=== PATIENT | female | born 1990 | race Caucasian/White ===

== ENCOUNTER 2021-12-04 21:08 | Outpatient (CLI) | payer OTHER ==
[~2021-12-04] VITALS: Ht 157.5 cm; Wt 70.5 kg
[2021-12-04 21:30] VITALS: BP 113/70; PULSE 75
--- NOTE | 2021-12-04 21:30 | NUR ---
2130 [id number] 24 WEEK GEST TO LR3 WITH C/O VAG BLEEDING AFTER INTERCOURSE. VAG PAD ON WITH SM AMOUNT OF PINKISH AND BRIGHT RED BLOOD. PAD REMAINS ON. STATES DID HAVE SOME BLEEDING IN TOILET AFTERWARDS ALSO. NO C/O PAIN OR LEAKING FLUID.
[2021-12-04] MEDS ORDERED: PRENATAL TABLET PO (21:54)
[2021-12-04] MEDS ORDERED: MIRALAX PA17 GM/Dose PO (21:56)
[2021-12-04 22:15] VITALS: BP 103/56; PULSE 77
--- NOTE | 2021-12-04 22:15 | NUR ---
2215 UP TO BR AND VOIDED. SCANT AMOUNT OF PINKISH BLOOD ON TOILET PAPER AND NO NEW BLEEDING ON VAGINAL PAD. DR PORTER HERE AND LOOKED AT PAD. INSTRUCTED TO WATCH PT ONE MORE HOUR AND IF BLEEDING MINIMAL MAY GO HOME.
[2021-12-04 23:00] VITALS: BP 100/55; PULSE 63
--- NOTE | 2021-12-04 23:00 | NUR ---
2300 UP TO BR AND VOIDED. ONLY SCANT PINKISH VAG BLEEDING ON PAD AND ON TOILET PAPER. DISMISSAL INSTRUCTIONS GIVEN, 2314 HOME WITH INSTRUCTIONS.
== END 2021-12-04 23:15 | disposition home or self-care (01) ==
LOC: LDRO 21:08
DX: O26.859 Spotting complicating pregnancy, unspecified trimester (principal); Z3A.00 Weeks of gestation of pregnancy not specified